=== PATIENT | female | born 2000 | race Two or more races ===

== ENCOUNTER 2024-07-14 15:29 | Emergency (ER) | payer OTHER ==
[~2024-07-14] VITALS: Ht 154.9 cm; Wt 98.2 kg
--- NOTE | 2024-07-14 16:11 | ECG ---
[facility] Test Date: 2024-07-14 Test Time: 15:56:11 Pat Name: HUGO FERNANDEZ Department: er Room: Gender: F Generation Engineer: gp : 2000 Requested By: NI GAGE Order Number: [id number] Reading MD: Measurements Intervals [place] Rate: 138 P: 56 NV: 131 QRS: 110 QRSD: 89 T: 15 QT: 290 QTc: 440 Interpretive Statements Sinus tachycardia Probable left atrial enlargement Low voltage, precordial leads Consider right ventricular hypertrophy Please click the below link to view image of tracing.
[2024-07-14 17:48] VITALS: BP 155/99; PULSE 110; RESP 18; TEMP 98.3; O2SAT 95
[2024-07-14] MEDS: methylPREDNISolone SOD SUCC 125 MG/2 ML VL IM ONE (18:21)
[2024-07-14] MEDS: KETOROLAC TROMETH 30 MG/ML 1ML VIAL IM ONE (18:21)
[2024-07-14] MEDS ORDERED: IBUP-1455 PO (18:47)
[2024-07-14] MEDS ORDERED: CYCL-837 PO (18:47)
--- NOTE | 2024-07-14 18:47 | ED.PDOC ---
Back pain HPI HPI Comments 23-year-old female complaining of lower back pain which started today after trying to lift a heavy box. Patient states box weighed approximately 50+ lb. States when she went to lift the amoxicillin sharp pain in the lower back. Pain is 9/10. No saddle paresthesia no loss of bladder or bowel control. Nothing makes it better, movement makes it worse. Chief Complaint: Back Pain Time Seen by MD: 15:31 Reviewed Notes: Nurses Notes Allergies: Coded Allergies: NO KNOWN ALLERGIES (Unverified , 07/14/24) Information Source: Patient Mode of Arrival: Ambulatory Past Medical History PAST MEDICAL HISTORY: Denies Surgical History: Denies all surgeries PROJECT MANAGER FINANCE History: No Pertinent PROJECT MANAGER FINANCE History Constitutional: denies: chills, diaphoresis, fatigue, fever, malaise, sweats, weakness, others EENTM: denies: blurred vision, double vision, ear bleeding, ear discharge, ear drainage, ear pain, ear ringing, eye pain, eye redness, hearing loss, mouth pain, mouth swelling, nasal discharge, nose bleeding, nose congestion, nose pain, photophobia, tearing, throat pain, throat swelling, voice changes, others Respiratory: denies: cough, hemoptysis, orthopnea, SOB at rest, shortness of breath, SOB with excertion, stridor, wheezing, others Cardiovascular: denies: chest pain, dizzy spells, diaphoresis, Dyspnea on exertion, edema, irregular heart beat, left arm pain, lightheadedness, palpitations, PND, syncope, others Gastrointestinal: denies: abdomen distended, abdominal pain, blood streaked bowels, constipated, diarrhea, dysphagia, difficulty swallowing, hematemesis, melena, nausea, poor appetite, poor fluid intake, rectal bleeding, rectal pain, vomiting, others Genitourinary: denies: abnormal vagina bleeding, burning, dyspareunia, dysuria, flank pain, frequency, hematuria, incontinence, pain, , vagina discharge, urgency, others Neurological: denies: dizziness, fainting, headache, left sided numbness, left sided weakness, numbness, paresthesia, pre-existing deficit, right sided numbness, right sided weakness, seizure, speech problems, tingling, tremors, weakness, others Musculoskeletal: denies: back pain, gout, joint pain, joint swelling, muscle pain, muscle stiffness, neck pain, others Integumetry: denies: bruises, change in color, change in hair/nails, dryness, laceration, lesions, lumps, rash, wounds, others Allergic/Immunocompromised: denies: Difficulty Healing, Frequent Infections, Hives, Itching, others Hematologic/Lymphatic: denies: anemia, blood clots, easy bleeding, easy bruising, swollen glands, others Physical Exam General Appearance: No Apparent Distress, Normal HEENT: Normal ENT Inspection, Pharynx Normal, TMs Normal Neck: Full Range of Motion, Non-Tender, Normal, Normal Inspection Respiratory: Chest Non-Tender, Lungs Clear, No Accessory Muscle Use, No Respiratory Distress, Normal Breath Sounds Cardiovascular: No Edema, No JVD, No Murmur, No Gallop, Normal Peripheral Pulses, Regular Rate/Rhythm Breast Exam: Deferred Gastrointestinal: No Organomegaly, Non Tender, No Pulsatile Mass, Normal Bowel Sounds, Soft Genitalia: Deferred Pelvic: Deferred Rectal: Deferred Extremities: No calf tenderness, Normal capillary refill, Normal inspection, Normal range of motion, Non-tender, No pedal edema Musculoskeletal : Location: Bilateral Extremity Location: Back (Bilateral lumbar paraspinous muscles tender to palpation, limited range of motion of the lower back due to pain.) Apperance: Normal Neurologic: Alert, patient navigator II-XII nml as Tested, No Motor Deficits, Normal Affect, Normal Mood, No Sensory Deficits Cerebellar Function: Normal Reflexes: Normal Skin: Dry, Normal Color, Warm Lymphatic: No Adenopathy Was a procedure done? Was a procedure done?: No Back Pain Differential Dx Differential Diagnosis: Strain X-Ray, Labs, Meds, VS Vital Signs Date Time Temp Pulse Resp B/P (MAP) Pulse Ox O2 Delivery O2 Flow Rate FiO2 07/14/24 17:48 98.3 110 18 155/99 (117) 95 98.3 07/14/24 15:58 99.4 140 20 164/104 (124) 97 07/14/24 15:56 138 Current Medications Medications (Trade) Dose Ordered Sig/Arnulfo Route Start Time Stop Time Status Last Admin Methylprednisolone Sodium Succinate (Solu Medrol) 125 mg ONCE ONCE IM 07/14/24 16:30 07/14/24 16:31 DC 07/14/24 18:21 Ketorolac Tromethamine (Toradol Injection) 30 mg ONCE ONCE IM 07/14/24 16:30 07/14/24 16:31 DC 07/14/24 18:21 X-Ray, Labs, Meds, VS Comment Imaging: X-rays and CT scans were reviewed and interpreted by this provider, imaging shows no fractures and no pathological disease. Pending radiology review. Laboratory: Labs reviewed and interpreted by this provider. No significant a bnormalities noted. Patient has prior medical visits reviewed. Med reconciliation performed Vital signs reviewed Time of 1ST Reevaluation: 18:47 Reevaluation 1ST: Improved Patient Education/Counseling: Diagnosis, Treatment, Need For Follow Up (Patient advised to follow-up in the emergency room in the next 24 to 48 hours if symptoms do not improve. Advised follow-up with PCP in the next 3 to 5 days. Patient verbalized understanding. ) Family Education/Counseling: Diagnosis Departure 1 Departure Time of Disposition: 18:46 Impression: Primary Impression: Musculoskeletal pain Disposition: 01 HOME / SELF CARE / HOMELESS Condition: Fair e-Prescriptions Ibuprofen Micronized (Ibuprofen) 800 Mg Tab 800 MG PO TID PRN, #40 TAB Prov: NI GAGE 07/14/24 Cyclobenzaprine Hcl (Cyclobenzaprine Hcl) 5 Mg Tab 1 TAB PO TID PRN, #30 TAB Prov: NI GAGE 07/14/24 Discharged With: Self Critical Care Note Critical Care Time?: No Stability Stability form required: No Heart Score Heart Score: Heart Score Response (Comments) Value History N/A 0 EKG N/A 0 Age N/A 0 Risk Factors N/A 0 Troponin N/A 0 Total 0 NI GAGE Jul 14, 2024 18:47
== END 2024-07-14 19:11 | disposition home or self-care (01) ==
LOC: ER 15:29
DX: M54.59 Other low back pain (principal)
CPT/HCPCS: 93005; 96372; 99284; J1885; J2919